=== PATIENT | female | born 2000 | race Caucasian/White ===

== ENCOUNTER 2020-05-07 14:08 | Outpatient (CLI) | payer OTHER ==
[2020-05-07 14:28] VITALS: BP 111/74; PULSE 95; RESP 18; TEMP 98.3
--- NOTE | 2020-05-07 16:27 | P.MSEPDOC ---
Presenting Problems - Arrival Data Date of Arrival on Unit: 05/07/20 Time of Arrival on Unit: 14:20 Mode of Transport: Ambulatory - Complaint OB-Reason for Admission/Chief Complaint: Decreased Movement Comment: 31 2/7 weeks gestation Medical History - Information : 2 Para: 0 Term: 0 : 0 Abortions: Spontaneous or Elective: 1 Number of Living Children: 0 - Gestational Age Gestational Age by BRAXTON (wks/days): 31 Weeks and 3 Days - History Comment: denies Review of Systems - Review of Systems Constitutional: No problems Breast: No problems ENT: No problems Cardiovascular: No problems Respiratory: No problems Gastrointestinal: No problems Genitourinary: No problems Musculoskeletal: No problems Neurological: No problems Skin: No problems Vital Signs - Temperature Temperature: 98.3 F Temperature Source: Oral - Pulse Right Brachial Pulse Rate: 95 Pulse Assessment Method: Automatic Cuff - Respirations Respiratory Rate: 18 Oxygen Delivery Method: Room Air O2 Sat by Pulse Oximetry: 98 - Blood Pressure Right Arm Blood Pressure: 111/74 Blood Pressure Mean: 86 Blood Pressure Source: Automatic Cuff Medical Screen Scoring (Pre) - Cervical Exam Dilation: Exam Deferred Effacement: Exam Deferred Membranes: Intact - Uterine Contractions Frequency: N/A Duration: N/A Intensity: N/A - Maternal Vital Signs Maternal Temperature: N/A Maternal Blood Pressure: N/A Signs of Preeclampsia: N/A Maternal Respirations: N/A - Maternal Trauma Maternal Trauma: N/A - Assessment - Baby A Baseline FHR: 135 Heart Rate - NICHD Category: Category I (Normal) = 0 NST: Reactive Position: N/A Station: N/A - Total Score - Baby A Total Score - Baby A: 0 - Total Score - Baby B Total Score - Baby B: 0 - Total Score - Baby C Total Score - Baby C: 0 - Level of Risk - Baby A Level of Risk - Baby A: Low (0-5) - Level of Risk - Baby B Level of Risk - Baby B: Low (0-5) - Level of Risk - Baby C Level of Risk - Baby C: Low (0-5) Physician Notification (Pre) - Physician Notified Spoke With: theodore Roche Order Received: Yes - Notification Comment Comment: discharge, polina garcia Disposition - Disposition OB Disposition: Discharge to home Discharge Date: 05/07/20 Discharge Time: 14:43 I agree with the RN Medical Screening Exam: Yes Risk & Benefit of care provided described in d/c instruction: Yes Diagnosis: DECREASED MOVEMENTS, THIRD TRIMESTER, UNSP (Reassuring FHTs. Patient instructed on movement counts and advised to call sooner if concerns instead of waiting 48 hrs. )
== END 2020-05-07 14:46 | disposition home or self-care (01) ==
LOC: FBPOP 14:08
PROVIDERS: ATTEND Obstetrics & Gynecology
DX: O36.8130 Decreased fetal movements, third trimester, not applicable or unspecified (principal); Z3A.31 31 weeks gestation of pregnancy
CPT/HCPCS: 59025; G0463; 99213

== ENCOUNTER 2020-07-11 00:45 | Inpatient (IN) | payer OTHER ==
[2020-07-11] MEDS ORDERED: TERBUTALINE 1 MG/ML VIAL SQ PRN (02:29)
[2020-07-11] MEDS ORDERED: OXYTOCIN 10 UNIT/ML 1 ML VIAL IM PRN (02:29)
[2020-07-11] MEDS ORDERED: LIDOCAINE 0.5% (PF) 5 MG/ML (50 ML SDV) SQ PRN (02:29)
[2020-07-11] MEDS ORDERED: CARBOPROST TROMETHAMINE 250 MCG/ML 1 ML AMP IM PRN (02:29)
[2020-07-11] MEDS ORDERED: METHYLERGONOVINE 0.2 MG/ML 1 ML AMP IM PRN (02:29)
[2020-07-11] MEDS ORDERED: OXYTOCIN 30 UNITS/500 ML NS 30 UNIT in SALINE 1 500ML.BAG IV SCH (02:30)
[2020-07-11] MEDS: LACTATED RINGERS 1,000 ML IV SCH ×3 (03:20→10:14)
[2020-07-11 03:40] LABS: Basophils % (A) 0 %; Eosinophils # (A) 0.2 k/uL (0-0.7); Eosinophils % (A) 1 %; HCT 40.8 % (34.0-46.0); HGB 13.7 gm/dL (11.4-16.0); Lymphocytes # (A) 2.7 k/uL (1.0-4.8); Lymphocytes % (A) 16 %; MCH 28.7 pg (25.0-35.0); MCHC 33.5 g/dL (31.0-37.0); MCV 85.8 fL (80.0-100.0); Mean Platelet Volume 9.3; Monocytes # (A) 0.8 k/uL (0-1.0); Monocytes % (A) 5 %; Neutrophils # (A) 12.6 k/uL (1.3-7.7); Neutrophils % (A) 77 %; Platelet Count 334 k/uL (150-450); RBC 4.76 m/uL (3.80-5.40); RDW 12.7 % (11.5-15.5); WBC 16.5 k/uL (3.8-10.6)
[2020-07-11] MEDS ORDERED: BUTORPHANOL 1 MG/ML 1 ML VIAL IV PRN (05:43)
--- NOTE | 2020-07-11 08:48 | P.HPOB ---
History of Present Illness H&P Date: 07/11/20 Chief Complaint: Intrauterine at 40 weeks 6 days gestation: STU Farnsworth is a 20-year-old at 40 and 6 arriving complaining of spontaneous rupture membranes . Early this morning when I did see her at approximately 3:15 she had been ruptured and was having very irregular contractions every Rosy from 5-10 minutes. She relates to her not to strong and at that point she was not having a struggle breathing through them. Her Precis course other than a unripened cervix for long time frame was generally uncomplicated. Pertinent labs could AB+ blood type, Rh antibody was negative, rubella was immune, hepatitis B surface antigen/RPR/HIV/GBS were all negative. TREVOR done late last week showed a amniotic fluid index of 11.2. While it is noted that an Essure was positive on her exam, there was still a day felt artificial rupture membranes of this membrane rather was done clear fluid is noted. heart tones have a category 1 tracing in the 120s to 130s. She was dilated to 1-1/2 cm 90% effaced and -3 station. All questions are answered for her at this time. Plan for Pitocin augmentation of labor is made with expectation for epidural with the labor for pain control. Assessment intrauterine at 40 weeks gestation plan anticipate spontan eous vaginal delivery Past Medical History History of Any Multi-Drug Resistant Organisms: None Reported Additional Past Surgical History / Comment(s): [place] tooth extraction Past Anesthesia/Blood Transfusion Reactions: No Reported Reaction Past Psychological History: No Psychological Hx Reported Smoking Status: Never smoker Past Alcohol Use History: None Reported Past Drug Use History: None Reported - Past Family History Mother Family Medical History: No Reported History Medications and Allergies Home Medications Medication Instructions Recorded Confirmed Type Pnv,Calcium 72/Iron/Folic Acid 1 each PO DAILY MDD 1 tab 05/07/20 07/11/20 History [ Plus Tablet] Acetaminophen [Tylenol] 325 mg PO Q4H PRN 07/11/20 07/11/20 History Allergies Allergy/AdvReac Type Severity Reaction Status Date / Time No Known Allergies Allergy Verified 07/11/20 01:05 Exam Osteopathic Statement: *. No significant issues noted on an osteopathic structural exam other than those noted in the History and Physical/Consult. Vital Signs Temp Pulse Resp BP 07/11/20 02:45 97.3 F L 98 16 114/72 07/11/20 02:00 97.3 F L 80 16 114/72 Intake and Output 07/10/20 07/11/20 07/11/20 22:59 06:59 14:59 Other: # Voids 3 Weight 73.936 kg - OBG Physical Exam Breast: both: normal (no masses) Abdomen: bowel sounds normal, no diffuse tenderness, no bruit present, no guarding noted, no hepatomegaly, no splenomegaly, no mass Vulva: both: normal Vagina: normal moisture, no discharge Cervix: no lesion, no discharge Uterus: normal size, normal contour Adnexa: both: normal Anus/Rectum: normal perianal skin, no rectal mass, no hemorrhoids, heme negative Results Result Diagrams: 07/11/20 03:26 Abnormal Lab Results - Last 24 Hours (Table) 07/11/20 Range/Units 03:26 WBC 16.5 H (3.8-10.6) k/uL Neutrophils # 12.6 H (1.3-7.7) k/uL
[2020-07-11] MEDS ORDERED: SODIUM CHLORIDE 0.9% 100 ML BAG ONE (08:57)
[2020-07-11] MEDS ORDERED: ROPIVACAINE 5MG/ML 20ML VIAL ONE (08:57)
[2020-07-11] MEDS ORDERED: fentaNYL (PF) 50 MCG/ML 5 ML AMP ONE (08:57)
[2020-07-11] MEDS ORDERED: CITRIC ACID-SODIUM CITRATE 15 ML CUP PO ONE (11:01)
[2020-07-11] MEDS ORDERED: LACTATED RINGERS 1,000 ML IV ONE (11:01)
--- NOTE | 2020-07-11 12:18 | P.OP ---
Date of Procedure: 07/11/20 Preoperative Diagnosis: 1. at 40 weeks and 6 days 2. Arrest of descent 3. Variable decelerations in the heart rate Postoperative Diagnosis: 1. at 40 weeks and 6 days 2. Arrest of descent 3. Variable decelerations in the heart rate Procedure(s) Performed: primary low transverse Anesthesia: epidural Surgeon: Lois Green [facility] Supervisor #1: Patty Salmeron Estimated Blood Loss (ml): 769 IV fluids (ml): 500 Urine output (ml): 30 Pathology: other (Placenta) Condition: stable Disposition: floor Operative Findings: viable , Apgars 9, 9, weight 5 lbs. 11 oz. Normal uterus, tubes, ovaries. Description of Procedure: Patient was taken to the operating room where spinal anesthesia was found be adequate. She was prepped and draped in normal sterile fashion in dorsal supine position with a leftward tilt. Pfannenstiel skin incision was made the scalpel and carried through to the underlying layer of fascia with the scalpel. Fascia was incised in midline and carried bilaterally with the Steward scissors. The superior aspect of the fascial incision was grasped with Gonzales clamps elevated and the underlying rectus muscles dissected off with the Steward's. Attention was then turned to inferior aspect of same incision which in a similar fashion was grasped tented up and the underlying rectus muscles dissected off with the Steward's. The rectus muscles were the midline and the peritoneum was identified tented up and entered sharply with the scalpel. The incision was extended superiorly and inferiorly with good visualization of the bladder. The bladder blade was inserted and the vesicouterine peritoneum was incised the Metzenbaums then carried bilaterally and bladder flap created digitally. A low transverse incision was then made on the uterus with the scalpel. This was carried bilaterally and digital manner. 's head delivered atraumatically, nose and mouth bulb suctioned, cord clamped and cut, handed off to waiting nurses. Apgars 9,9, weight 5 lbs. 11 oz. Placenta delivered manually, intact with three-vessel cord. The uterus is exteriorized and cleared of all clots and debris. The uterine incision was closed with 0 Vicryl in a running locked fashion. Second layer of the same sutures used in imbricating fashion to obtain excellent hemostasis. Bladder flap was then reapproximated using 2-0 Vi cryl in a running fashion. Both ovaries and tubes appeared normal. The uterus was placed back into the abdomen. The peritoneum was reapproximated using 2-0 Vicryl in a running fashion. The muscles were reapproximated using 2-0 Vicryl in interrupted fashion. The fascia was reapproximated using 0 Vicryl in a running fashion. The subcutaneous tissues closed with 3-0 Vicryl running fashion. The skin was closed [place]. Patient tolerated the procedure well, sponge and instrument counts were correct times 2 and she was taken to the recovery room in stable condition.
[2020-07-11] MEDS ORDERED: ONDANSETRON 4 MG/2 ML VIAL IVP PRN (16:02)
[2020-07-11] MEDS ORDERED: diphenhydrAMINE 50 MG CAP PO PRN (16:02)
[2020-07-11] MEDS ORDERED: diphenhydrAMINE 50 MG/ML 1 ML VIAL IVP PRN ×2 (16:02)
[2020-07-11] MEDS ORDERED: ZOLPIDEM 5 MG TAB PO PRN (16:02)
[2020-07-11] MEDS ORDERED: diphenhydrAMINE 25 MG CAP PO PRN (16:02)
[2020-07-11] MEDS ORDERED: NALOXONE 0.4 MG/ML 1 ML VIAL IV PRN (16:02)
[2020-07-11] MEDS ORDERED: MEASLES-MUMPS-RUBELLA VACC/PF 12,500 UNIT/0.5 ML VIAL SQ ONE (16:02)
[2020-07-11] MEDS ORDERED: ACETAMINOPHEN TAB 325 MG TAB PO PRN (16:02)
[2020-07-11] MEDS ORDERED: METOCLOPRAMIDE 5 MG/ML 2 ML VIAL IVP PRN (16:02)
[2020-07-11] MEDS ORDERED: KETOROLAC 15 MG/ML 1 ML VIAL IVP PRN (16:02)
[2020-07-11] MEDS ORDERED: LACTATED RINGERS 1,000 ML IV SCH (16:15)
[2020-07-12] MEDS: SENNOSIDES-DOCUSATE SODIUM 1 EACH TAB PO SCH ×3 (01:46→20:38)
[2020-07-12] MEDS: HYDROcodone/APAP 5-325MG 1 EACH TAB PO PRN ×3 (04:00→21:52)
[2020-07-12 07:12] LABS: Basophils # (A) 0.1 k/uL (0-0.2); Basophils % (A) 0 %; Eosinophils # (A) 0.1 k/uL (0-0.7); Eosinophils % (A) 1 %; HCT 31.2 % (34.0-46.0); Lymphocytes # (A) 1.6 k/uL (1.0-4.8); Lymphocytes % (A) 13 %; MCH 28.2 pg (25.0-35.0); MCHC 32.3 g/dL (31.0-37.0); MCV 87.4 fL (80.0-100.0); Mean Platelet Volume 9.4; Monocytes # (A) 0.6 k/uL (0-1.0); Monocytes % (A) 5 %; Neutrophils # (A) 9.7 k/uL (1.3-7.7); Neutrophils % (A) 80 %; Platelet Count 248 k/uL (150-450); RBC 3.57 m/uL (3.80-5.40); WBC 12.1 k/uL (3.8-10.6)
--- NOTE | 2020-07-12 07:12 | P.PN ---
Progress Note - Text 07/12/20 636am 20-year-old female status post with a spinal Duramorph. Patient seen and evaluated this morning for postop pain control. She has a VAS of 4. No clear nausea vomiting or pruritus.
[2020-07-12 07:14] LABS: HGB 10.1 gm/dL (11.4-16.0)
--- NOTE | 2020-07-12 08:27 | P.PNOBGPC ---
Subjective - Subjective Principal diagnosis: Postop day 1 Interval history: Daja doing very well postop day 1. She is involuting, voiding and tolerating her diet. She voices no complaints. We'll advance diet today and continue otherwise current care. All questions are answered for her at this time and she will plan to remove the dressing later this this morning her this afternoon when she showers. Patient reports: Reports appetite normal, Reports voiding normally, Reports pain well controlled, Reports ambulating normally : doing well Objective - Vital Signs Latest vital signs: Vital Signs Temp Pulse Resp BP Pulse Ox 07/12/20 04:00 97.9 F 102 H 16 105/58 99 07/12/20 00:00 98.6 F 98 16 103/50 98 07/11/20 20:00 99.2 F 101 H 16 103/50 07/11/20 16:00 98 F 96 16 110/65 96 07/11/20 14:00 98.3 F 84 17 103/58 07/11/20 13:30 81 17 100/58 07/11/20 13:00 98 17 110/71 07/11/20 12:45 96 16 113/68 96 07/11/20 12:29 98 16 104/52 07/11/20 12:20 101 H 17 108/57 07/11/20 12:05 98.0 F 95 17 101/55 97 Intake and Output 07/11/20 07/12/20 07/12/20 22:59 06:59 14:59 Output Total 250 200 Balance -250 -200 Output: Urine 250 200 Other: # Voids 1 1 - Exam Lungs: bilateral: normal Chest: Normal S1, Normal S2 Extremities: Present: normal Abdomen: Present: normal appearance, soft. Absent: distention, tenderness Incision: Present: normal, dry, intact Uterus: Present: normal, firm - Labs Labs: Abnormal Lab Results - Last 24 Hours (Table) 07/12/20 Range/Units 05:39 WBC 12.1 H (3.8-10.6) k/uL RBC 3.57 L (3.80-5.40) m/uL Hgb 10.1 L D (11.4-16.0) gm/dL Hct 31.2 L (34.0-46.0) % Neutrophils # 9.7 H (1.3-7.7) k/uL
[2020-07-12] MEDS: IBUPROFEN 600 MG TAB PO PRN ×2 (12:10→18:49)
[2020-07-13] MEDS: HYDROcodone/APAP 5-325MG 1 EACH TAB PO PRN (06:28)
[2020-07-13] MEDS: SENNOSIDES-DOCUSATE SODIUM 1 EACH TAB PO SCH (08:00)
--- NOTE | 2020-07-13 09:03 | P.DS ---
Providers Date of admission: 07/11/20 02:15 Expected date of discharge: 07/13/20 Attending physician: César Ac Primary care physician: Stated None Hospital Course: Daja seen and evaluated postop day 2. She is ambulating, voiding and tolerating her diet. She voices no complaints. Vital signs are stable and afebrile. She has passed flatus and has had a bowel movement. She is requesting discharge to home today. Prescription for [place] and Motrin are 40 to the pharmacy. Discharge instructions were thoroughly reviewed and all questions were answered for her. She'll see me again in 1 week. On physical exam heart regular, lungs clear, extremities without pain. Abdomen is soft uterus is firm below the umbilicus and incision is clean dry and intact. Assessment postop day 2. Plan discharged home follow me in 1 week we'll plan removal of [place] with Steri-Strip application today. Patient Condition at Discharge: Good Plan - Discharge Summary New Discharge Prescriptions: New Ibuprofen [Motrin] 600 mg PO Q6HR PRN #30 tab PRN Reason: Pain HYDROcodone/APAP 5-325MG [[place] 5-325] 1 tab PO Q4HR PRN #30 tab PRN Reason: Pain No Action Pnv,Calcium 72/Iron/Folic Acid [ Plus Tablet] 1 each PO DAILY MDD 1 tab Acetaminophen [Tylenol] 325 mg PO Q4H PRN PRN Reason: Pain Scale 1 To 5 Discharge Medication List Pnv,Calcium 72/Iron/Folic Acid [ Plus Tablet] 1 each PO DAILY MDD 1 tab 05/07/20 [History] Acetaminophen [Tylenol] 325 mg PO Q4H PRN 07/11/20 [History] HYDROcodone/APAP 5-325MG [[place] 5-325] 1 tab PO Q4HR PRN #30 tab 07/13/20 [Rx] Ibuprofen [Motrin] 600 mg PO Q6HR PRN #30 tab 07/13/20 [Rx] Follow up Appointment(s)/Referral(s): César Ac DO [Doctor of Osteopathic Medicine] - 1 Week Activity/Diet/Wound Care/Special Instructions: No heavy lifting, limit stairs and driving, and pelvic rest. If any high temperatures, heavy bleeding, or severe pain call my office Discharge Disposition: HOME SELF-CARE
[2020-07-13 09:21] VITALS: BP 109/67; PULSE 97; RESP 18; TEMP 98.4
[2020-07-13] MEDS: IBUPROFEN 600 MG TAB PO PRN (12:41)
== END 2020-07-13 14:20 | disposition home or self-care (01) | DRG 788 ==
LOC: FBPOP 00:45 → 4FBP 02:15
PROVIDERS: ADMIT Obstetrics & Gynecology; ATTEND Obstetrics & Gynecology
DX: O62.1 Secondary uterine inertia (principal); K21.9 Gastro-esophageal reflux disease without esophagitis; O99.613 Diseases of the digestive system complicating pregnancy, third trimester; O76 Abnormality in fetal heart rate and rhythm complicating labor and delivery; Z23 Encounter for immunization; Z37.0 Single live birth; Z3A.40 40 weeks gestation of pregnancy; Z79.899 Other long term (current) drug therapy
CPT/HCPCS: 59025; 84112; 85025; 86850; 86900; 86901; 90707; 99213